=== PATIENT | male | born 1995 | race Caucasian/White ===

== ENCOUNTER 2017-04-25 13:46 | Emergency (ER) | payer OTHER ==
[2017-04-25 13:57] VITALS: BP 118/76; PULSE 94; RESP 16; TEMP 98.2; O2SAT 98
--- NOTE | 2017-04-25 15:14 | EDPHY ---
H & P Time Seen by Provider: 04/25/17 15:14 HPI/ROS: CHIEF COMPLAINT: Nausea and vomiting HISTORY OF PRESENT ILLNESS: This 21-year-old patient comes today with nausea and vomiting since 7:00 a.m.. Last episode at noon. Multiple episodes of diarrhea. He has not had any known sick contacts and no recent foreign travel. Symptoms mild. Associated with some abdominal cramping which is also mild. Worse with trying to eat or drink anything. REVIEW OF SYSTEMS: Eye: no change in vision ENT: no sore throat Cardiac: no chest pain or syncope Pulmonary: no cough or SOB Abdomen: HPI Musculoskeletal: no back pain Skin: no rash Neuro: no headache Constitutional: no fever : no urinary symptoms A comprehensive 10 point review of systems is otherwise negative aside from elements mentioned in the history of present illness. PAST MEDICAL HISTORY: Negative except for surgery on his adenoids Social history: No recent foreign travel General Appearance: Alert and conversant, cooperative. Eyes: No scleral icterus. ENT, Mouth: Slightly dry mucous membranes Respiratory: Normal respiratory effort, breath sounds equal, lungs are clear to auscultation. Cardiovascular: Regular rate and rhythm. Gastrointestinal: Abdomen is soft and non tender. No McBurney's point tenderness or hernia. Neurological: Alert and oriented x3. Normally conversant. Face symmetric, normal movement and sensation in all extremities. Skin: Warm and dry, no rashes. Musculoskeletal: No peripheral edema and no joint swelling. Psychiatric: Not agitated. Emergency Department course/MDM: IV discussed but patient would prefer to avoid. Zofran ODT and he was able to tolerate oral fluids without difficulty. Likely gastroenteritis, low suspicion for acute surgical abdominal process. Smoking Status: Never smoked Constitutional: Initial Vital Signs Temperature (C) 36.8 C 04/25/17 13:54 Heart Rate 94 04/25/17 13:54 Respiratory Rate 16 04/25/17 13:54 Blood Pressure 118/76 04/25/17 13:54 O2 Sat (%) 98 04/25/17 13:54 O2 Delivery Mode Room Air Allergies/Adverse Reactions: Penicillins Allergy (Verified 04/25/17 13:53) Home Medications: Medication Instructions Recorded NK [No Known Home Meds] 04/25/17 Medical Decision Making Differential Diagnosis: Differential diagnosis considered for nausea and vomiting including but not limited to gastroenteritis, gastritis, appendicitis, and medication side effect. - Data Points Medications Given: Discontinued Medications Ondansetron HCl (Zofran Odt) 4 mg PO EDNOW ONE Stop: 04/25/17 15:20 Last Admin: 04/25/17 15:28 Dose: 4 mg Departure - Departure Disposition: Home, Routine, Self-Care Clinical Impression: Dehydration Nausea & vomiting Qualifiers: Vomiting type: unspecified Vomiting Intractability: non-intractable Qualified Code(s): R11.2 - Nausea with vomiting, unspecified Condition: Good Instructions: Acute Nausea and Vomiting (ED) Referrals: [facility],. [Clinic] - As per Instructions
[2017-04-25] MEDS ORDERED: ONDANSETRON DISINTEGRATING 4 MG TAB PO ONE (15:19)
== END 2017-04-25 16:23 | disposition home or self-care (01) ==
DX: E86.0 Dehydration (principal)

== ENCOUNTER → 2017-11-25 | Outpatient (CLI) | payer OTHER | LOC: FIMAGING 11:58 → EDSTATUS 12:00 | PROVIDERS: ATTEND Family Medicine | DX: M53.3 Sacrococcygeal disorders, not elsewhere classified (principal) ==